=== PATIENT | male | born 1945 | race Caucasian/White ===

== ENCOUNTER 2018-10-24 02:09 | Emergency (ER) | payer SELFPAY ==
[~2018-10-24] VITALS: Ht 157.5 cm; Wt 76.0 kg
[2018-10-24] MEDS ORDERED: MORPHINE SULFATE 10 MG/ML CPJ IM ONE ×2 (03:15→06:15)
[2018-10-24] MEDS ORDERED: ONDANSETRON 4MG ODT PO ONE ×2 (03:15→06:15)
[2018-10-24 03:30] LABS: BASOPHILS % 0.4 % (0.0-2.0); HEMATOCRIT. 46.8 % (42.0-52.0); HEMOGLOBIN. 16.1 g/dL (14.0-18.0); LYMPHOCYTES % 8.2 % (20.0-50.0); MEAN PLATELET VOLUME 9.7 fl (7.4-10.4); MONOCYTES % 4.8 % (2.0-8.0); NEUTROPHILS % 86.6 % (40.0-76.0); PLATELET 190 x1000/uL (130-400); RED BLOOD CELL COUNT 5.03 mill/uL (4.7-6.1); RED CELL DISTRIBUTION WIDTH 13.7 % (11.6-14.6)
[2018-10-24 03:35] LABS: CHLORIDE 111 mEq/L (98-107)
[2018-10-24 03:36] LABS: PROTHROMBIN TIME 10.6 sec (9.6-11.0)
[2018-10-24 08:59] VITALS: BP 146/74
== END 2018-10-24 09:56 | disposition home or self-care (01) ==
LOC: ER 02:09
DX: R33.9 Retention of urine, unspecified (principal); N40.1 Benign prostatic hyperplasia with lower urinary tract symptoms; E11.9 Type 2 diabetes mellitus without complications; E78.00 Pure hypercholesterolemia, unspecified; I10 Essential (primary) hypertension; Z88.0 Allergy status to penicillin
CPT/HCPCS: 36415; 51702; 80053; 85025; 85610; 96372; 99285; J2270; Q0162; 99284; A4315